=== PATIENT | male | born 1995 | race Two or more races ===

== ENCOUNTER 2019-07-30 00:45 | Emergency (ER) | payer OTHER ==
[~2019-07-30] VITALS: Ht 177.8 cm; Wt 106.1 kg
[2019-07-30] MEDS ORDERED: KETO10TA2 PO (04:43)
== END 2019-07-30 04:54 | disposition home or self-care (01) ==
LOC: ER 00:45
DX: S40.012A Contusion of left shoulder, initial encounter (principal); S80.02XA Contusion of left knee, initial encounter; S00.83XA Contusion of other part of head, initial encounter; V49.49XA Driver injured in collision with other motor vehicles in traffic accident, initial encounter; Y93.89 Activity, other specified; Y92.488 Other paved roadways as the place of occurrence of the external cause; Y99.8 Other external cause status